=== PATIENT | female | born 1985 | race Caucasian/White ===

== ENCOUNTER 2016-09-04 22:40 | Emergency (ER) | payer OTHER ==
[~2016-09-04] VITALS: Ht 162.6 cm; Wt 77.1 kg
[~2016-09-04 22:40] MED LIST: ALBU83IN INH; DULC5TAB PO; FIBER SUPPLEMENT
[2016-09-04] MEDS ORDERED: FLON1SPR (22:47)
[2016-09-04] MEDS ORDERED: ADV250INH INH (22:47)
[2016-09-04] MEDS ORDERED: NS 1,000 ML IV ONE (23:15)
[2016-09-04] MEDS ORDERED: ONDANSETRON 4MG/2ML VIAL (J2405) IV ONE (23:15)
[2016-09-04] MEDS: HYDROmorphone HCL 1 MG/ML SYRINGE (J1170) IV PRN (23:30)
[2016-09-04 23:43] LABS: CONTROL LINE HCG INT CTR LINE PRESENT
[2016-09-04 23:45] LABS: BASO % 0.8 % (0.0-1.0); EOS # 0.2 K/mm3 (0.0-0.50); EOS % 2.5 % (0.0-3.0); LARGE UNSTAINED CELL # 0.1 K/mm3 (0.0-0.4); LARGE UNSTAINED CELL % 1.2 % (0.0-4.0); LYMPH # 1.9 K/mm3 (1.5-4.5); LYMPH % 25.4 % (24.0-44.0); MEAN CORPUSCULAR HEMOGLOBIN 29.6 pg (27.0-33.0); MEAN CORPUSCULAR VOLUME 89.8 fl (80.0-96.0); MONO # 0.6 K/mm3 (0.0-0.8); NEUTROPHILS # 4.4 K/mm3 (1.8-7.7); NEUTROPHILS % 62.1 % (36.0-66.0); PLATELET COUNT, AUTOMATED 176 k/mm3 (150-450); RED CELL DISTRIBUTION WIDTH 12.7 % (11.5-14.5); WHITE BLOOD COUNT 7.1 K/mm3 (4.0-10.0)
[2016-09-04 23:50] LABS: ALBUMIN 3.6 GM/DL (3.2-5.2); ALBUMIN/GLOBULIN RATIO 1.03 (1.00-1.93); ALKALINE PHOSPHATASE 105 U/L (45-117); ALT/SGPT 25 U/L (12-78); ANION GAP 6 MEQ/L (8-16); AST/SGOT 42 U/L (15-37); BILIRUBIN,DIRECT < 0.1 MG/DL (0.0-0.2); BILIRUBIN,TOTAL 0.3 MG/DL (0.2-1.0); BLOOD UREA NITROGEN 14 MG/DL (7-18); CALCIUM LEVEL 9.1 MG/DL (8.5-10.1); CARBON DIOXIDE LEVEL 28 MEQ/L (21-32); CHLORIDE LEVEL 107 MEQ/L (98-107); CREATININE FOR GFR 0.86 MG/DL (0.55-1.02); GLOMERULAR FILTRATION RATE > 60.0 (>60); GLUCOSE, FASTING 104 MG/DL (70-105); POTASSIUM SERUM 3.7 MEQ/L (3.5-5.1); SODIUM LEVEL 141 MEQ/L (136-145); TOTAL PROTEIN 7.1 GM/DL (6.4-8.2)
[2016-09-05] MEDS ORDERED: ISOVUE-370 76% 100ML VIAL (Q9967) As Ordered ONE (00:09)
--- NOTE | 2016-09-05 00:50 | REPUSA ---
CT of the abdomen and pelvis with contrast Clinical statement: Pain. Technique: Multiple axial CT images were obtained from the base of the lungs through the floor of the pelvis utilizing 5 mm axial slices after administration of oral and nonionic intravenous contrast. C oronal and sagittal reconstructions were also obtained. Comparison: 10/14/2014. Findings: Chest: The visualized lung bases are clear. Abdomen: The liver, spleen, pancreas, kidneys, gallbladder, and adrenal glands are unremarkable. The aorta is within normal limits. There is no evidence of abdominal lymphadenopathy or ascites. Pelvis: The bowel is unremarkable, with no obstructive or inflammatory changes. The appendix is milady l. The urinary bladder is within normal limits. The other pelvic structures appear grossly intact. Th ere is no evidence of pelvic lymphadenopathy or ascites. Bones: There are no suspicious osseous abnormalities seen. Impression: Unremarkable CT examination of the abdomen and pelvis. No acute abnormality to explain th e patient's pain.
[2016-09-05] MEDS ORDERED: HYDROmorphone HCL 1 MG/ML SYRINGE (J1170) As Ordered ONE (01:54)
[2016-09-05] MEDS: HYDROmorphone HCL 1 MG/ML SYRINGE (J1170) IV PRN (02:07)
--- NOTE | 2016-09-05 02:40 | REPUSA ---
CLINICAL HISTORY: Pelvic pain. TECHNIQUE: Realtime sonographic images were obtained in multiple projections via TA approach. COMMENTS: The uterus is anteverted measuring 9.3x4.6x5.1 cm. The endometrial echo pattern is within normal limi ts measuring 11.7 mm. There is no evidence of free fluid within the pelvic cul-de-sac. The right ovary measures 3.7x1.7x2.4 cm and the left ovary measures 3.8x1.3x2.5 cm . Both ovaries are free of solid or cystic mass. There is no evidence for abnormal vascularity. IMPRESSION: Normal study. Thank you for your kind referral of this patient.
[2016-09-05] MEDS ORDERED: OXYCODONE/APAP 5MG/325MG(BULK FOR ED) 1 TABLET PO ONE (04:00)
[2016-09-05 04:18] VITALS: BP 99/54
== END 2016-09-05 04:17 | disposition home or self-care (01) ==
LOC: M ED 23:28
DX: R10.9 Unspecified abdominal pain (principal)
CPT/HCPCS: 74177; 76856; 80048; 80076; 81001; 83690; 84703; 85025; 87088; 87186; 93041; 96361; 96374; 96375; 96376; 99284; J1170; J2405; Q9967

== ENCOUNTER 2016-10-14 05:42 | Day surgery (SDC) | payer OTHER ==
[~2016-10-14] VITALS: Ht 162.6 cm; Wt 77.1 kg
[2016-10-14] VITALS (11 sets, daily range): BP systolic 105–130; BP diastolic 57–67
[~2016-10-14 05:42] MED LIST changes: +ADV250INH INH; +FLON1SPR
[2016-10-14] MEDS ORDERED: LR 1,000 ML IV SCH ×2 (06:00→10:45)
[2016-10-14 06:20] LABS: MEAN CORPUSCULAR HEMOGLOBIN 30.4 pg (27.0-33.0); MEAN CORPUSCULAR HGB CONC 33.3 g/dl (32.0-36.5); MEAN CORPUSCULAR VOLUME 91.2 fl (80.0-96.0); RED CELL DISTRIBUTION WIDTH 12.5 % (11.5-14.5); WHITE BLOOD COUNT 5.6 K/mm3 (4.0-10.0)
[2016-10-14] MEDS ORDERED: ROCURONIUM BROMIDE 50 MG/5 ML VIAL As Ordered ONE ×2 (07:09→08:22)
[2016-10-14] MEDS ORDERED: LIDOCAINE 2% INJ 100 MG/5 ML SDV (FOR ANES.) As Ordered ONE (07:09)
[2016-10-14] MEDS ORDERED: PROPOFOL 200 MG/20 ML VIAL As Ordered ONE (07:09)
[2016-10-14] MEDS ORDERED: ONDANSETRON 4MG/2ML VIAL (J2405) As Ordered ONE ×3 (07:09→10:18)
[2016-10-14] MEDS ORDERED: MIDAZOLAM INJ 2 MG/2 ML VIAL (J2250) As Ordered ONE (07:09)
[2016-10-14] MEDS ORDERED: fentaNYL 100 MCG/2 ML INJECTION (J3010) As Ordered ONE ×3 (07:09→09:47)
[2016-10-14] MEDS ORDERED: PHENYLephrine HCL 500 MCG/5 ML (100MCG/ML) SYRINGE (J2370) As Ordered ONE (07:56)
[2016-10-14] MEDS ORDERED: ePHEDrine SULFATE 25 MG/5 ML(5MG/ML) SYRINGE As Ordered ONE ×2 (07:59→09:15)
[2016-10-14] MEDS ORDERED: NEOSTIGMINE 1MG/ML 5 ML SYRINGE (J2710) As Ordered ONE (09:31)
[2016-10-14] MEDS ORDERED: GLYCOPYRROLATE INJ 0.2 MG/ML 2 ML VIAL As Ordered ONE (09:32)
[2016-10-14] MEDS ORDERED: MORPHINE 1MG/ML IN 0.9% NACL 100ML IV BAG As Ordered ONE (10:01)
[2016-10-14] MEDS ORDERED: MORPHINE 10 MG/ML 1ML VIAL As Ordered ONE (10:02)
[2016-10-14] MEDS ORDERED: KETOROLAC 30 MG/ML VIAL (J1885) As Ordered ONE (10:18)
[2016-10-14] MEDS ORDERED: diphenhydrAMINE INJ 50MG/ML VIAL (J1200) As Ordered ONE (10:32)
[2016-10-14] MEDS: diphenhydrAMINE INJ 50MG/ML VIAL (J1200) IV PRN ×2 (10:32→10:40)
[2016-10-14] MEDS ORDERED: KETOROLAC 30 MG/ML VIAL (J1885) IV PRN (10:45)
[2016-10-14] MEDS ORDERED: PERCOCET 5MG/325MG TAB PO PRN (10:45)
[2016-10-14] MEDS ORDERED: diphenhydrAMINE INJ 50MG/ML VIAL (J1200) IV PRN (10:45)
[2016-10-14] MEDS ORDERED: MORPHINE 1MG/ML IN 0.9% NACL 100ML IV BAG IV PRN (10:45)
[2016-10-14] MEDS ORDERED: EPIDURAL/PCA KEYS XX PRN (10:45)
[2016-10-14] MEDS ORDERED: fentaNYL 100 MCG/2 ML INJECTION (J3010) IV PRN (10:45)
[2016-10-14] MEDS ORDERED: ONDANSETRON 4MG/2ML VIAL (J2405) IV PRN (10:45)
[2016-10-14] MEDS ORDERED: METOCLOPRAMIDE INJ 10MG/2ML VIAL (J2765) IV PRN (10:45)
[2016-10-14] MEDS ORDERED: NALOXONE INJ 0.4 MG/1 ML VIAL (J2310) IV PRN (10:45)
[2016-10-14] MEDS ORDERED: MEPERIDINE INJ 25 MG/ML VIAL (J2175) IV PRN (10:45)
[2016-10-14] MEDS ORDERED: NALBUPHINE HCL 10 MG/ML AMP (J2300) IV PRN (10:45)
[2016-10-14] MEDS: LR 1,000 ML IV SCH ×2 (11:53→20:50)
[2016-10-14] MEDS: ADVAIR DISKUS 250/50 INH PWD INH SCH (23:02)
[2016-10-15] VITALS: BP 118/55
[2016-10-15] MEDS: IBUPROFEN 600 MG TAB PO PRN ×2 (00:37→09:00)
[2016-10-15 04:00] VITALS: BP 111/55
[2016-10-15] MEDS: LR 1,000 ML IV SCH (04:00)
[2016-10-15] MEDS: NORCO, ANEXSIA 5/325MG TABLET (HYDROcodone/ACETAMINOPHEN) PO PRN ×3 (05:07→14:29)
[2016-10-15 07:17] LABS: MEAN CORPUSCULAR HGB CONC 33.4 g/dl (32.0-36.5); MEAN CORPUSCULAR VOLUME 89.8 fl (80.0-96.0); RED CELL DISTRIBUTION WIDTH 12.7 % (11.5-14.5); WHITE BLOOD COUNT 8.8 K/mm3 (4.0-10.0)
[2016-10-15 08:00] VITALS: BP 100/60
[2016-10-15] MEDS: ADVAIR DISKUS 250/50 INH PWD INH SCH (08:39)
[2016-10-15] MEDS ORDERED: IBUP600T26 PO (11:31)
[2016-10-15] MEDS ORDERED: NORC1TAB4 PO (11:31)
[2016-10-15 12:00] VITALS: BP 105/54
--- NOTE | 2016-10-15 13:56 | RO ---
DATE OF PROCEDURE: 10/14/2016 PREPROCEDURE DIAGNOSES/REASON FOR PROCEDURE: Dysmenorrhea, menorrhagia, dyspareunia, uterine tenderness and left lower quadrant pain. POSTPROCEDURE DIAGNOSIS: Dysmenorrhea, menorrhagia, dyspareunia, uterine tenderness and left lower quadrant pain. PROCEDURE: Laparoscopic-assisted vaginal hysterectomy with left salpingectomy and right salpingectomy. The patient retains her right ovary. SURGEON: Carey Dunn MD REPORTING MANAGER: None. ANESTHESIA: General endotracheal anesthesia. BRIEF DESCRIPTION OF PROCEDURE AND FINDINGS: Cat was brought to the operating room where sufficient general endotracheal anesthesia was induced. She was prepped, draped and positioned in the usual fashion with the uterine manipulator placed and the Vasquez with the ability to backfill placed. Attention was then turned to the abdomen where a transverse incision was made over the level of her previous laparoscopic scar and sharp and blunt dissection were continued through the subcutaneous tissues to the level of the rectus fascia, which was grasped with Georges clamps, transversely incised, and secured with a #0 Vicryl retention sutures. The peritoneum was then entered under direct visualization. Then using the S retractors, the peritoneal cavity was visualized and the Thomas cannula was placed and secured in place with a #0 Vicryl retention suture. CO2 insufflation was then begun. After adequate CO2 insufflation, the peritoneal cavity was visualized. There were normal shiny peritoneal surfaces throughout. There were no excresences, ascites nor exudate. There were some minor adhesions and two Filshie clips, one on each tube. The ovaries themselves were normal in appearance. There was a simple, small functional cyst on the right side and some even smaller cysts on the left, but an overall normal appearance. A 5 mm right lower quadrant port was placed. Using the grasper through the operative port at the umbilicus and the Enseal through the 5 mm port, we were able to elevate the infundibulopelvic ligament on the left side and carefully cauterize and transect it. We then worked our way through the round ligament on the right side and the superior aspect of the broad. We backfilled the bladder, as is typical to clearly identify its location and the patient's ureters were readily visualized. Having proceeded that far on the left side, we then turned our attention to the right and elevated the tube again with the grasper. We were able to carefully dissect it away from the right ovary. Having freed the tube, we then carefully cauterized and transected the uteroovarian suspensory ligament and then the round ligament on the right side and carefully continued the ligament dissection using the cold scissors, as is typical for me, to then create the bladder flap. We then cauterized the uterine vasculature and then turned our attention to the vagina. The uterine manipulator was removed. Single toothed tenaculum were placed on the anterior and posterior aspects of the cervix and with retractors in place, a circumferential incision was made around the base of the cervix. In this young patient, the blood supply to the vaginal tissues was quite good. We did oversew one bleeder in the cuff as we proceeded. We then isolated the cardinal ligaments, carefully clamped, transected and ligated them using the Zandra'Kassidy clamps, which were used throughout, and #0 Vicryl suture, which was again used throughout this portion of the case. . We then uterosacral ligaments. Clamped, transected and ligated them, of course entering the peritoneum posteriorly. We secured those for later reattachment to the cuff. We then continued the dissection anterior to join up with our dissection that we had done laparoscopically. Then having isolated the uterine vasculature, carefully clamped, transected and ligated it in a sequential fashion along the lateral aspect of the uterus, which was then delivered with the fallopian tubes attached and the left ovary attached. The angles were then oversewn with #0 Vicryl suture. There was a little bit of oozing on the patient's right side, and so with the sponge on a stick and in Trendelenburg, we carefully observed this region and confirmed good hemostasis. The pedicles were oversewn and then proceeded to oversew the angles and resecure the ureterosacrals and then closed the vaginal cuff in a running lock stitch all using #0 Vicryl. Good hemostasis was achieved at each step. We then closed the cuff. We then went back above to remove the instruments and close the laparoscopic wounds. The umbilical fascia was closed with #0 Vicryl retention sutures and the skin wounds closed with #3-0 subcuticular stitch with good approximation and hemostasis achieved. Dry, sterile dressings were then applied. ESTIMATED BLOOD LOSS: About 200 mL. FLUID REPLACEMENT: Crystalloid. COMPLICATIONS: None. CONDITION AND DISPOSITION: Cat tolerated the procedure well and was recovering in the recovery room in good condition.
== END 2016-10-15 16:45 | disposition home or self-care (01) ==
LOC: M SDC 05:42 → M PED 11:06 → M SDC 10-15 16:45
PROVIDERS: ATTEND Obstetrics & Gynecology
DX: N94.6 Dysmenorrhea, unspecified (principal); N92.0 Excessive and frequent menstruation with regular cycle; N94.10 Unspecified dyspareunia; R10.32 Left lower quadrant pain; G43.909 Migraine, unspecified, not intractable, without status migrainosus; F32.9 Major depressive disorder, single episode, unspecified; J45.909 Unspecified asthma, uncomplicated; T88.59XD Other complications of anesthesia, subsequent encounter; R01.1 Cardiac murmur, unspecified; E04.1 Nontoxic single thyroid nodule; K21.9 Gastro-esophageal reflux disease without esophagitis; M12.9 Arthropathy, unspecified; T88.4XXD Failed or difficult intubation, subsequent encounter; Z88.2 Allergy status to sulfonamides; Z79.899 Other long term (current) drug therapy; Z98.51 Tubal ligation status
CPT/HCPCS: 36415; 58552; 85014; 85018; 85027; 86850; 86900; 86901; 88309; 94640; 94664; J0690; J1200; J1885; J2250; J2370; J2405; J2710; J3010

== ENCOUNTER 2016-10-26 08:36 | Emergency (ER) | payer OTHER ==
[~2016-10-26] VITALS: Ht 162.6 cm; Wt 77.1 kg
[~2016-10-26 08:36] MED LIST changes: +IBUP600T26 PO; +NORC1TAB4 PO
[2016-10-26 08:52] VITALS: BP 131/74
[2016-10-26] MEDS ORDERED: PERCOCET 5MG/325MG TAB PO ONE (09:00)
[2016-10-26] MEDS ORDERED: VICO5TAB16 PO (09:50)
--- NOTE | 2016-10-26 09:52 | REP ---
Clinical: Trauma. Technique: AP, lateral, bilateral oblique views of the right foot. Findings: There is a nondisplaced transverse fracture through the proximal diaphysis of the fifth metatarsal bone. No other fracture dislocation is appreciated or suggested. Remainder examination is normal. Impression: Transverse nondisplaced fracture at the base of the fifth metatarsal bone. The Signed by Eladio Browne MD 10/26/2016 09:43 A
--- NOTE | 2016-10-26 09:53 | REP ---
Clinical: Trauma . Technique: AP, lateral, bilateral oblique views right ankle . Findings: No acute fracture or dislocation. Skeletal structures and joint spaces are intact and normal. Ankle mortise appears stable. No subcutaneous emphysema or radiodense foreign body. There is a transverse nondisplaced fracture at the base of the fifth metatarsal shaft. Impression: Normal right ankle radiograph series. Nondisplaced fracture at the base of the fifth metatarsal bone. Signed by Eladio Browne MD 10/26/2016 09:45 A
== END 2016-10-26 10:20 | disposition home or self-care (01) ==
LOC: M ED 09:12
DX: S92.354A Nondisplaced fracture of fifth metatarsal bone, right foot, initial encounter for closed fracture (principal); X50.9XXA Other and unspecified overexertion or strenuous movements or postures, initial encounter; Y92.018 Other place in single-family (private) house as the place of occurrence of the external cause; Y93.01 Activity, walking, marching and hiking; Y99.8 Other external cause status; Z87.440 Personal history of urinary (tract) infections; F33.9 Major depressive disorder, recurrent, unspecified; F41.9 Anxiety disorder, unspecified; I51.9 Heart disease, unspecified; Z79.899 Other long term (current) drug therapy; Z88.5 Allergy status to narcotic agent; Z88.2 Allergy status to sulfonamides; Z88.1 Allergy status to other antibiotic agents